=== PATIENT | female | born 1950 | race Caucasian/White ===

== ENCOUNTER 2017-09-09 20:15 | Emergency (ER) | payer MEDICARE ==
[2017-09-09 20:24] VITALS: BP 157/87; PULSE 100; RESP 20; TEMP 98.3; O2SAT 96
[2017-09-09] MEDS ORDERED: ANAS1 PO (20:38)
[2017-09-09] MEDS ORDERED: ASPI81TA23 PO (20:38)
--- NOTE | 2017-09-09 21:00 | PD ---
HPI Chief Complaint: Injury Time Seen by Provider: 20:56 Travel History International Travel<30 days: No Contact w/Intl Traveler<30days: No Traveled to known affect area: No History of Present Illness HPI The patient is a 67-year-old right-hand dominant female that slammed her right little finger in the door of her automobile trunk. She did this at approximately 6:30 PM tonight. She complains of a laceration and pain on her right little finger. She does not want stitches of possible. Her last tetanus shot was likely over 10 years ago. PFSH Past Medical History Hx Anticoagulant Therapy: Yes (ASA) Cancer: Yes (breast) Cardiovascular Problems: Yes ( HAD TEST ABNORMAL HEART ) Diminished Hearing: No Tetanus Vaccination: Unknown Influenza Vaccination: Yes ?: Not Menopausal: Yes Past Surgical History Eye Surgery: Yes Tonsillectomy: Yes Other Surgery: Yes (lt lumpectomy face lift) Social History Alcohol Use: Yes Tobacco Use: No Substance Use: No Allergies-Medications (Allergen,Severity, Reaction): Coded Allergies: adhesive (Unverified Allergy, Mild, RASH RED , 09/09/17) No Known Allergies (Unverified Adverse Reaction, Unknown, 09/09/17) Reported Meds & Prescriptions Reported Meds & Active Scripts Active Reported Aspirin EC (Aspirin) 81 Mg Tabdr 81 Mg PO DAILY Arimidex (Anastrozole) 1 Mg Tab 1 Mg PO DAILY Review of Systems Except as stated in HPI: all other systems reviewed are Neg Physical Exam Narrative GENERAL: The patient is alert, oriented 3 in slight apparent distress with her right left finger discomfort. Her vital signs show blood pressure 157/87 with heart rate of 100 but otherwise normal. SKIN: Focused skin assessment warm/dry. HEAD: Atraumatic. Normocephalic. EYES: Pupils equal and round. No scleral icterus. No injection or drainage. ENT: No nasal bleeding or discharge. Mucous membranes pink and moist. NECK: Trachea midline. No JVD. CARDIOVASCULAR: Regular rate and rhythm. No murmur appreciated. RESPIRATORY: No accessory muscle use. Clear to auscultation. Breath sounds equal bilaterally. GASTROINTESTINAL: Abdomen soft, non-tender, nondistended. Hepatic and splenic margins not palpable. MUSCULOSKELETAL: No obvious deformities. No clubbing. No cyanosis. No edema. There is no linear no rotatory deformity of the right fifth finger. Good capillary refill and pinprick is present distally. There is NEUROLOGICAL: Awake and alert. No obvious cranial nerve deficits. Motor grossly within normal limits. Normal speech. PSYCHIATRIC: Appropriate mood and affect; insight and judgment normal. Data Data Last Documented VS Vital Signs Date Time Temp Pulse Resp B/P (MAP) Pulse Ox O2 Delivery O2 Flow Rate FiO2 09/09/17 20:24 98.3 100 20 157/87 (110) 96 Orders Orders Wound Care (09/09/17 21:17) Tetanus/Diphtheria Tox Adult (Tetanus/Di (09/09/17 21:30) MDM Medical Decision Making Medical Screen Exam Complete: Yes Emergency Medical Condition: Yes Medical Record Reviewed: Yes Differential Diagnosis Contusion finger, fractured finger, laceration finger Narrative Course There is no clinical evidence for fractured finger. The patient has a laceration and contusion of her right fifth finger. Diagnosis Primary Impression: Laceration of finger of right hand Additional Impression: Contusion of right little finger Med/Other Pt SpecificInfo: No Change to Meds Disposition: 01 DISCHARGE HOME Condition: Stable Lawrence Phelps MD Sep 09, 2017 21:00
[2017-09-09] MEDS ORDERED: TETANUS/DIPHTHERIA TOXOID ADULT 0.5 ML VIAL IM ONE (21:30)
== END 2017-09-09 22:06 | disposition home or self-care (01) ==
LOC: PHEFT 20:15
DX: S61.216A Laceration without foreign body of right little finger without damage to nail, initial encounter (principal); W23.0XXA Caught, crushed, jammed, or pinched between moving objects, initial encounter; Z23 Encounter for immunization
CPT/HCPCS: 90471; 90714; 99281